=== PATIENT | female | born 1970 | race American Indian/Alaskan Native ===

== ENCOUNTER 2016-09-05 18:51 | Emergency (ER) | payer SELFPAY ==
[2016-09-05 21:04] LABS: Basophils % (Auto) 0.6 % (0.0-1.8); Eosinophils % (Auto) 2.7 % (0.0-4.3); Hematocrit 35.8 % (30.3-42.9); Hemoglobin 11.7 gm/dl (10.1-14.3); Mean Corpuscular HGB Conc 33 % (30-34); Mean Corpuscular Hemoglobin 29 pg (28-32); Mean Corpuscular Volume 89 fl (79-97); Platelet Count 203 K/mm3 (140-440); Red Blood Count 4.02 M/mm3 (3.65-5.03); Red Cell Distribution Width 14.6 % (13.2-15.2); White Blood Count 6.1 K/mm3 (4.5-11.0)
[2016-09-05 21:12] LABS: Anion Gap 17 mmol/L; Blood Urea Nitrogen 12 mg/dL (7-17); Calcium 10.2 mg/dL (8.4-10.2); Carbon Dioxide 23 mmol/L (22-30); Chloride 103.3 mmol/L (98-107); Glucose 116 mg/dL (65-100); Sodium 138 mmol/L (137-145)
[2016-09-05] MEDS ORDERED: BOOSTRIX IM ONE (22:42)
--- NOTE | 2016-09-05 23:25 | Cat Scan Report ---
FINAL REPORT EXAM: CT HEAD/BRAIN WO CON HISTORY: head injury, intoxicated TECHNIQUE: CT was performed from the foramen magnum through the vertex in the axial plane without the use of intravenous contrast. PRIORS: None. FINDINGS: The cerrato/white matter attenuation pattern is normal. There is no mass lesion or mass effect. There are no abnormal extra-axial fluid collections. There is no evidence of acute intracranial hemorrhage or infarct. The ventricles are of normal size and configuration. The skull and orbits are unremarkable. The visualized paranasal sinuses are clear. IMPRESSION: Normal CT of the head.
--- NOTE | 2016-09-05 23:27 | Cat Scan Report ---
FINAL REPORT EXAM: CT FACIAL BONES WO CON HISTORY: head injury, intoxicated TECHNIQUE: Helical CT was performed of the facial bones in the axial plane and reconstructed in the sagittal and coronal planes. PRIORS: None. FINDINGS: The orbits, zygomatic arches and mandible are intact. The nasal bones and pterygoid plates are intact. There is no evidence of acute facial fracture. The soft tissues appear normal. The paranasal sinuses are clear. IMPRESSION: No evidence of acute fracture.
--- NOTE | 2016-09-05 23:29 | Cat Scan Report ---
FINAL REPORT EXAM: CT CERVICAL SPINE WO CON HISTORY: head injury, intoxicated TECHNIQUE: Helical axial CT imaging of the cervical spine. Images are reconstructed in the sagittal and coronal planes. PRIORS: None. FINDINGS: The vertebral bodies have normal height and alignment. There is no evidence of fracture or subluxation. The paraspinous soft tissues are unremarkable. IMPRESSION: No evidence of acute fracture or subluxation.
--- NOTE | 2016-09-05 23:46 | Emergency Department Report ---
HPI - General Chief Complaint: Wound/Laceration Time Seen by Provider: 09/05/16 22:35 - HPI HPI: Room 26 The patient is a 46-year-old female presenting with a chief complaint of fall. The patient states she tripped and fell tonight landing on her face. Patient denies loss of consciousness. Patient complains of only facial pain. The patient is uncertain the last time she received a tetanus shot. The patient admits to consuming alcohol tonight Location: Lip Duration: hours Quality: Pain Severity: Moderate Modifying factors: [see above] Context: [see above] Mode of transportation: [not driving] ED Past Medical Hx - Past Medical History Previous Medical History?: Yes Additional medical history: Stomach ulcers,. Chronic Back Pain. Falls, unsteady gait. Obesity - Surgical History Past Surgical History?: No - Family History Family history: no significant - Social History Smoking Status: Current Every Day Smoker Substance Use Type: Alcohol - Medications Home Medications: Home Medications Medication Instructions Recorded Confirmed Last Taken Type Amoxicillin/K Clav Tab [Augmentin 1 each PO Q12HR #20 tablet 09/06/16 Unknown Rx 500 MG TAB] Ibuprofen [Motrin 800 MG tab] 800 mg PO Q8HR PRN #20 tablet 09/06/16 Unknown Rx traMADol [Ultram] 50 mg PO Q6HR PRN #10 tablet 09/06/16 Unknown Rx ED Review of Systems ROS: Stated complaint: FALL Other details as noted in HPI Comment: All other systems reviewed and negative Constitutional: denies: chills, fever Eyes: denies: eye pain, eye discharge, vision change ENT: other (facial pain, lip pain) Respiratory: denies: cough, shortness of breath, wheezing Cardiovascular: denies: chest pain, palpitations Endocrine: no symptoms reported Gastrointestinal: denies: abdominal pain, nausea, diarrhea Genitourinary: denies: urgency, dysuria, discharge Musculoskeletal: denies: back pain, joint swelling, arthralgia Skin: denies: rash, lesions Neurological: denies: headache, weakness, paresthesias Psychiatric: denies: anxiety, depression Hematological/Lymphatic: denies: easy bleeding, easy bruising Physical Exam - Physical Exam Vital Signs: Vital Signs 09/05/16 09/05/16 09/05/16 19:24 22:19 23:14 Temperature 98.5 F Pulse Rate 96 H 95 H 96 H Respiratory 20 16 16 Rate Blood Pressure 136/85 131/87 135/83 [Right] O2 Sat by Pulse 100 96 96 Oximetry Physical Exam: GENERAL: The patient is well-developed well-nourished female lying on stretcher not appearing to be in acute distress. [] HEENT: Normocephalic. Abrasion to right cheek. Triangular laceration to the inside of the upper lip. Laceration appears to go just to the vermilion border. Extraocular motions are intact. Patient has moist mucous membranes. NECK: Supple. Trachea midline CHEST/LUNGS: Clear to auscultation. There is no respiratory distress noted. HEART/CARDIOVASCULAR: Regular. There is no tachycardia. There is no gallop rub or murmur. ABDOMEN: Abdomen is soft, nontender. Patient has normal bowel sounds. There is no abdominal distention. SKIN: There is no rash. There is no edema. There is no diaphoresis. NEURO: The patient is awake, alert, and oriented. The patient is cooperative. The patient has no focal neurologic deficits. The patient has normal speech. Cranial nerves II through XII grossly intact MUSCULOSKELETAL: There is no limitation range of motion. ED Course Vital Signs 09/05/16 09/05/16 09/05/16 19:24 22:19 23:14 Temperature 98.5 F Pulse Rate 96 H 95 H 96 H Respiratory 20 16 16 Rate Blood Pressure 136/85 131/87 135/83 [Right] O2 Sat by Pulse 100 96 96 Oximetry ED Medical Decision Making - Lab Data Result diagrams: 09/05/16 20:37 09/05/16 20:37 Laboratory Tests 09/05/16 09/05/16 09/05/16 20:37 20:37 20:37 WBC 6.1 RBC 4.02 Hgb 11.7 Hct 35.8 MCV 89 MCH 29 MCHC 33 RDW 14.6 Plt Count 203 Lymph % (Auto) 29.5 [place] % (Auto) 7.0 Eos % (Auto) 2.7 Baso % (Auto) 0.6 Lymph # 1.8 [place] # 0.4 Eos # 0.2 Baso # 0.0 Seg Neutrophils % 60.2 Seg Neutrophils # 3.7 Sodium 138 Potassium 5.0 Chloride 103.3 Carbon Dioxide 23 Anion Gap 17 BUN 12 Creatinine 1.1 Estimated GFR > 60 BUN/Creatinine Ratio 10.90 Glucose 116 H Calcium 10.2 Troponin T < 0.010 Plasma/Serum Alcohol 0.21 H - Radiology Data Radiology results: report reviewed (CT head, CT cervical spine, CT facial bones) , image reviewed (CT head, CT cervical spine, CT facial bones) CT head (read by radiologist)-normal CT of the head CT facial bones (read by radiologist)-no evidence of acute fracture CT cervical spine (read by radiologist)-no evidence of acute fracture or subluxation - Differential Diagnosis lip laceration Critical care attestation.: If time is entered above; I have spent that time in minutes in the direct care of this critically ill patient, excluding procedure time. ED Disposition Clinical Impression: Lip laceration, Facial contusion, Alcohol intoxication Disposition: DISCHARGED TO HOME OR SELFCARE Is pt being admited?: No Does the pt Need Aspirin: No Condition: Stable Instructions: Laceration (ED), Absorbable Suture Care (ED) Additional Instructions: Return to the emergency department immediately should you develop worsening symptoms, fever, inability to tolerate food or liquid or any other concerns. Prescriptions: Amoxicillin/K Clav Tab [Augmentin 500 MG TAB] 1 each PO Q12HR #20 tablet Ibuprofen [Motrin 800 MG tab] 800 mg PO Q8HR PRN #20 tablet PRN Reason: Pain traMADol [Ultram] 50 mg PO Q6HR PRN #10 tablet PRN Reason: Pain Time of Disposition: 00:23 (patient to be discharged home to family or when alcohol level less than 0.08. Alcohol redraw ordered for 04:00) Blank Doc - Documentation Documentation: Laceration note Consent was obtained verbally Length of wound: 2 cm The wound was anesthetized with lidocaine 1% approximately 2.5 mL's Wound was cleaned with hydrogen peroxide Site was prepped with hydrogen peroxide Sutures used were 5. 0 Vicryl The number of sutures placed in a simple interrupted fashion 3 The wound had [good] approximation The wound had [good] hemostasis Laceration type: Simple There were no complications
[2016-09-05] MEDS ORDERED: XYLOCAINE 1% 20 mL ONE (23:50)
[2016-09-05] MEDS ORDERED: HYDROGEN PEROXIDE ONE (23:52)
[2016-09-06 06:53] VITALS: BP 132/78
== END 2016-09-06 06:54 | disposition home or self-care (01) ==
LOC: ED 18:51
DX: S01.511A Laceration without foreign body of lip, initial encounter (principal); S00.83XA Contusion of other part of head, initial encounter; F10.129 Alcohol abuse with intoxication, unspecified; G89.29 Other chronic pain; F17.200 Nicotine dependence, unspecified, uncomplicated; W01.0XXA Fall on same level from slipping, tripping and stumbling without subsequent striking against object, initial encounter; Y93.89 Activity, other specified; Y99.8 Other external cause status; Y92.89 Other specified places as the place of occurrence of the external cause
CPT/HCPCS: 12011; 36415; 70450; 70486; 72125; 80048; 84484; 85025; 90471; 90715; 93005; 93010; 99285; G0480; 80320